=== PATIENT | female | born 1950 | race Caucasian/White ===

== ENCOUNTER → 2021-05-06 | Outpatient (CLI) | payer OTHER ==
--- NOTE | 2021-05-06 17:25 | DIREP ---
PROCEDURE:CHEST 2 VIEWS COMPARISON:[facility] [place], [place], XRAY CHEST SINGLE VW, 02/12/2021, 02:37 PM. INDICATIONS:COVID-19 LONG HAULER U09.9 FINDINGS: LUNGS/PLEURA:Minimal left basilar scar and atelectasis. No effusion identified. No pneumothorax VASCULATURE:Normal. Unremarkable pulmonary vasculature. CARDIAC:Normal. No cardiac silhouette abnormality or cardiomegaly. MEDIASTINUM:Normal. No visible mass or adenopathy. BONES:Normal. No fracture or visible bony lesion. OTHER:There are surgical clips present in the right upper quadrant compatible with prior cholecystectomy. CONCLUSION:Minimal peripheral left basilar scar and/or atelectasis. Dictated by: Bhanu Corcoran MD on 05/06/2021 at 05:22 PM
== END | disposition home or self-care (01) ==
LOC: RAD 16:39
PROVIDERS: ATTEND Nurse Practitioner Family
DX: U09.9 Post COVID-19 condition, unspecified (principal)
CPT/HCPCS: 71046

== ENCOUNTER → 2021-07-22 | Outpatient (CLI) | payer MEDICARE ==
[~2021-07-22] MED LIST: LEXISCAN IV ONE
--- NOTE | 2021-07-22 23:52 | PCM.ECHO ---
APPROVED REPORT EXAM: Comprehensive 2D, Doppler, and color-flow Echocardiogram. Patient Location: OUT-PATIENT Indications Dyspnea Chest Pain 2D Dimensions LVOT Diameter 2.18 (1.8-2.4cm) LVEF(%) 62.25 (>50%) M-Mode Dimensions RVDd 0.55 (2.1-3.2cm) Left Atrium(MM) 3.35 (2.5-4.0cm) IVSd 0.95 (0.7-1.1cm) Aortic Root 2.60 (2.2-3.7cm) LVDd 4.75 (4.0-5.6cm) Aortic Cusp Exc 1.80 (1.5-2.0cm) PWd 0.75 (0.7-1.1cm) MV EPSS 0.45 (<0.5cm) IVSs 1.20 cm FS (%) 32.35 % LVDs 3.20 (2.0-3.8cm) ESV(Teich) 41.79 ml PWs 1.50 cm LVEF(%) 60.58 (>50%) Volumes Biplane 2D LV Volumes Biplane 2D LA Volumes LVEDv A4C 73.95 mL LA ESV Index LVESv A4C 28.08 mL Aortic Valve AoV Peak Lion. 0.90 m/s AoV VTI 20.50 cm AO Peak GR. 3.30 mmHg AO Mean GR. 1.75 mmHg LVOT VTI 16.57 cm LVOT Peak Lion. 0.67 m/s LC(VTI)/BSA 3.01 cm2/m2 LC (VTI) 3.01 cm2 Mitral Valve MV E Velocity 0.65m/s MR Peak Gr. 6.25mmHg MV A Velocity 0.80m/s TDI Lateral E' P. V 0.11m/s Medial E' P. V 0.11m/s Pulmonary Valve PV Peak Velocity 0.60m/s PV Peak Grad. 1.55mmHg RVOT VTI 15.16cm Tricuspid Valve TR P. Velocity 1.35m/s RAP ESTIMATE 10.00mmHg TR Peak Gr. 7.45mmHg RVSP 17.45mmHg LEFT VENTRICLE The left ventricle is normal size. The left ventricular systolic function is normal. The left ventricular ejection fraction is within the normal range. There is normal left ventricular wall thickness. There is normal LV segmental wall motion. Mild diastolic dysfunction is present (impaired relaxation pattern). There is no ventricular septal defect visualized. No left ventricle thrombus noted on this study. LVEF is 65%. RIGHT VENTRICLE The right ventricle is normal size. The right ventricular systolic function is normal. There is normal right ventricular wall thickness. ATRIA The left atrium size is normal. The interatrial septum is intact with no evidence for an atrial septal defect. AORTIC VALVE The aortic valve is normal in structure. There is no aortic valvular stenosis. No aortic regurgitation is present. There is no aortic valvular vegetation. MITRAL VALVE The mitral valve is normal in structure. There is no mitral valve stenosis. Mild mitral regurgitation. There is no evidence of mitral valve vegetations. TRICUSPID VALVE The tricuspid valve is normal in structure. There is no tricuspid valve stenosis. Mild tricuspid regurgitation. There is no tricuspid valve vegetations. PULMONIC VALVE Pulmonic valve is not well visualized. There is no pulmonic valvular stenosis. There is no pulmonic valvular regurgitation. GREAT VESSELS The aortic root is normal in size. Pulmonary artery is not well visualized. Aortic arch is not well visualized. The IVC is normal in size and collapses >50% with inspiration. PERICARDIUM There is no pericardial effusion. There is no pleural effusion. Other Information Study Quality: Fair <Conclusion> The left ventricular systolic function is normal. LVEF is 65%. Mild diastolic dysfunction is present (impaired relaxation pattern). Mild mitral regurgitation. Mild tricuspid regurgitation. Electronically signed by : BRODY HUGGINS. 07/22/2021 23:51:33
--- NOTE | 2021-07-23 02:31 | STRESS ---
DATE OF SERVICE: 07/22/2021 DICTATOR NAME: BRODY BAZANKENZIEJazz CARDIAC STRESS TEST INDICATION: Chest pain. FINDINGS: Baseline EKG shows normal sinus rhythm with poor R-wave progression with nonspecific ST-T wave changes. Stress EKG shows normal sinus rhythm, unchanged from baseline. At the end of recovery, EKG shows normal sinus rhythm, unchanged from baseline. Baseline heart rate is 68 beats per minute and fátima to 85 beats per minute during stress. At the end of recovery, the heart rate was 93 beats per minute. Baseline blood pressure is 120/74 and remained the same during stress. At the end of recovery, the blood pressure was 131/66. Blood pressure and heart rate were appropriate for stress. There were no significant symptoms noted during stress. There were no arrhythmias noted during stress. EKG portion of stress test is negative for myocardial ischemia. Nuclear images were obtained with a rest dose of 11.69 mCi technetium-99 sestamibi, and a stress dose of 33.8 mCi technetium 99 sestamibi. Nuclear images reveal homogeneous tracer distribution across all wall segments as visualized in both rest and stress images, with no evidence of myocardial ischemia or infarction. Left ventricular ejection fraction is 81%. EDV is 43 mL, ESV is 8 mL. The left ventricle is normal in size. Gated motion images showed normal wall motion across all segments of the left ventricle. TID is 1.6. There is no evidence of diaphragmatic attenuation artifact. IMPRESSION: 1. Normal myocardial perfusion imaging with no evidence of myocardial ischemia or infarction. 2. Left ventricular ejection fraction of 81%. 3. This is a negative study. Edilia MURRAY D.O. DR: LAURENT TID: [id number] RECEIPT: [id number]
== END | disposition home or self-care (01) ==
LOC: RAD 10:31
PROVIDERS: ATTEND Internal Medicine Interventional Cardiology
DX: R07.9 Chest pain, unspecified (principal); R06.02 Shortness of breath
CPT/HCPCS: 78452; 93017; 93306; A9500; J2785

== ENCOUNTER → 2021-09-06 | Outpatient (CLI) | payer MEDICARE ==
--- NOTE | 2021-09-07 06:43 | PRP ---
DATE OF PROCEDURE: 09/06/2021 DICTATOR NAME: BRODY HUGGINS DO VENOUS MAPPING ULTRASOUND INDICATION: Chronic venous insufficiency. RIGHT LOWER EXTREMITY: The right greater saphenous vein measures 8 mm in its maximum diameter. Significant reflux is noted in the right greater saphenous vein with maximum reflux of 0.6 seconds. The right small saphenous vein measures 3 mm in its maximum diameter. There is no evidence of significant reflux in the right small saphenous vein. There is no evidence of deep venous thrombosis in the right lower extremity. LEFT LOWER EXTREMITY: The left greater saphenous vein measures 10 mm in its maximum diameter. Significant reflux is noted in the left greater saphenous vein with maximum reflux of 0.8 seconds. The left small saphenous vein measures 2 mm in its maximum diameter. There is no evidence of significant reflux in the left small saphenous vein. There is no evidence of deep venous thrombosis in the left lower extremity. IMPRESSION: 1. The right greater saphenous vein is dilated and displays pathological reflux. 2. The left greater saphenous vein is severely dilated and displays pathological reflux. 3. There is no evidence of significant reflux in the bilateral SSV. 4. There is no evidence of deep venous thrombosis in the bilateral lower extremities. RECOMMENDATIONS: Conservative measures including the use of compression stockings, leg elevation and exercise are recommended if clinically indicated. Edilia MURRAY D.O. DR: TERESITA MATHIS: [id number] RECEIPT: [id number]
== END | disposition home or self-care (01) ==
LOC: RAD 14:27
PROVIDERS: ATTEND Nurse Practitioner Family
DX: I87.2 Venous insufficiency (chronic) (peripheral) (principal)
CPT/HCPCS: 93970

== ENCOUNTER → 2021-12-13 | Outpatient (CLI) | payer MEDICARE ==
--- NOTE | 2021-12-13 23:24 | PRP ---
DATE OF PROCEDURE: 12/13/2021 DICTATOR NAME: BRODY HUGGINS DO POST VENOUS ABLATION DOPPLER ULTRASOUND INDICATION: Status post Varithena ablation of the right greater saphenous vein. FINDINGS: There is no evidence of deep venous thrombosis in the right lower extremity. The right greater saphenous vein is noncompressible. Hyperechoic material is visualized in the right greater saphenous vein. There is no evidence of venous flow in the right greater saphenous vein. IMPRESSION: 1. Successful Varithena ablation of the right greater saphenous vein. 2. There is no evidence of deep venous thrombosis in the right lower extremity. Edilia MURRAY D.O. DR: LAURENT TID: [id number] RECEIPT: [id number]
== END | disposition home or self-care (01) ==
LOC: RAD 10:00
PROVIDERS: ATTEND Internal Medicine Interventional Cardiology
DX: I87.2 Venous insufficiency (chronic) (peripheral) (principal)
CPT/HCPCS: 93971